=== PATIENT | male | born 1940 | race Caucasian/White ===

== ENCOUNTER → 2016-07-13 | Outpatient (CLI) | payer MEDICARE ==
--- NOTE | 2016-07-14 08:20 | DI ---
Indication: ITS.REASON: M54.16 RADICULOPATHY; M54.5 LBP PROCEDURE: MRI LUMBAR SPINE W/O CONTRAST: Encounter: Initial Comparison: None Technique: Multiplanar multisequence MR imaging of the lumbar spine was performed without contrast. Findings: Alignment of the lumbar spine shows mild scoliosis and grade 1 degenerative anterolisthesis of L4 on L5. Vertebral body heights are maintained. No acute fracture. Conus medullaris terminates normally at L1. The paraspinal soft tissues are unremarkable. Segmental analysis: L1-L2: No significant disk herniation, central canal or neural foraminal stenosis. L2-L3: No significant disk herniation, central canal or neural foraminal stenosis. L3-L4: Minimal disk bulging without central canal stenosis. Degenerative facet disease contributing to mild right and minimal left neural foraminal stenosis. L4-L5: Degenerative facet hypertrophy with ligamentum flavum thickening and mild disk bulging resulting in severe central canal stenosis. Moderate bilateral neural foraminal stenosis. L5-S1: There facet hypertrophy with mild disk bulging but no central canal stenosis. Mild right neural foraminal stenosis. Impression: Severe central canal narrowing at L4-L5. .
== END ==
LOC: IMA 17:02
PROVIDERS: ATTEND Physician Assistant
DX: M48.06 Spinal stenosis, lumbar region (principal); M54.16 Radiculopathy, lumbar region; M54.5 Low back pain

== ENCOUNTER → 2016-08-05 | Outpatient (CLI) | payer MEDICARE ==
[~2016-08-05] MED LIST: IOHEXOL 180 MG/ML 20ml INJECTION ONE; LIDOCAINE 1% (10mg/ml) 5ml VIAL ONE; MethylPREDNISolone ACETATE 40mg/1ml ONE
--- NOTE | 2016-08-05 12:09 | DI ---
Indication:ITS.REASON: M54.16 RADICULOPATHY Procedure:EPIDURAL INJ.SPINE W FLUO CATH LUMBAR EPIDURAL INJECTION: The patient has low back and radicular pain. The patient has not had any previous epidurals. The details of the procedure, including the benefits, risks, and alternatives were explained to the patient. All of their questions were answered. They stated that they understood and wished to proceed. Informed consent was then obtained. A pre-procedural timeout was performed to confirm the correct patient and procedure. Utilizing aseptic technique, local lidocaine anesthetic, and fluoroscopic guidance throughout, a 22-gauge spinal needle was directed into the lumbar epidural space via an interlaminar approach at the L5-S1 level. Contrast was injected to assure proper positioning of the needle tip. A fluoroscopic image was then taken and archived. Subsequently, 120 mg Depo-Medrol was injected into the epidural space. The patient tolerated the procedure well. IMPRESSION: Successful lumbar epidural steroid injection. Fluoroscopy dose: 7.07 mGy (Cumulative air kerma) Malvin Roland RPA/CLARA performed this under my personal supervision. .
== END ==
LOC: IMA 10:53
PROVIDERS: ATTEND Nurse Practitioner
DX: M54.5 Low back pain (principal); M54.16 Radiculopathy, lumbar region
CPT/HCPCS: 62323; J1030; Q9965

== ENCOUNTER 2016-11-02 02:00 | Observation (INO) ==
--- NOTE | 2016-11-02 03:20 | Emergency Department Report ---
Abdominal Pain HPI - General Chief Complaint: Abdominal Pain Stated Complaint: Abd pain Time Seen by Provider: 11/02/16 02:54 - History of Present Illness HPI narrative: 76-year-old gentleman presents with abdominal pain. Patient had colonoscopy performed yesterday by Dr. Wynn. No complications and by history no biopsy performed. Patient went home and had some gas pains after the procedure, but did well, was able to eat 2 meals. He went to sleep and woke up with a cement feeling in his upper abdomen lower chest. Pain was quite severe, 8 out of 10 initially and resolved quite rapidly. At this time he has minimal pain if any. His called EMS and they transported him. He states he normally sees a doctor in [place]. He says he does not have a head of product and has never had any cardiac issues. - Related Data Home Medications Medication Instructions Recorded Confirmed Prilosec (Omeprazole) 20 mg 20 mg PO BID 10/19/16 11/02/16 capsule,delayed release citalopram 20 mg tablet 20 mg PO DAILY tab 10/19/16 11/02/16 garlic 1 mg capsule 1 mg PO DAILY cap 10/19/16 11/02/16 levothyroxine 50 mcg capsule 50 mcg PO DAILY cap 10/19/16 11/02/16 omega-3 fatty acids 1,000 mg 1,000 mg PO DAILY cap 10/19/16 11/02/16 capsule vitamin B complex tablet 1 tab-cap PO Q24H 10/19/16 11/02/16 Previous Rx's Medication Instructions Recorded chlorthalidone 25 mg tablet 25 mg PO .q day #90 tab 10/14/16 Allergies Allergy/AdvReac Type Severity Reaction Status Date / Time No Known Allergies Allergy Verified 11/02/16 02:28 Review of Systems All systems: reviewed and negative except as stated PFSH Patient Stated Medical History Angina No Hypertension Yes Other Cardiology Yes: RARE PVC Asthma No Chronic Obstructive Pulmonary No Disease (COPD) Sleep Apnea Yes Diabetes Mellitus Type 2 No Gastroesophageal Reflux Yes Disease Anemia Yes Anesthesia Reactions No Depression Yes Clinic Medical History Low back pain (Chronic Medical) HTN (hypertension) (Chronic Medical) Anxiety disorder (Chronic Medical) Hypothyroidism (Chronic Medical) GERD (gastroesophageal reflux disease) (Chronic Medical) Surgical History: 1. Tonsillectomy as a child at [place], [place]. 2. Pinning of left ankle with plate and screws to repair a fracture in 1996 at [facility] at [place], [place]. 3. Colonoscopy in 2006 at an office on [address] [place] [address] in [place], [place]. Family History: Family History (Last Updated 10/19/16 @ 13:24 by Niya Blas MA) Sister Diabetes - Social History Smoking status: Former smoker Substance use type: does not use Alcohol intake frequency: does not drink Physical Exam - Limitations Limitations: no limitations - General General appearance: alert, in no apparent distress - Normal Exams: Head:: Normocephalic without trauma Chest/Respirations:: Clear all evans, with good airflow, and symmetry bilaterally Abdomen:: Bowel sounds positive, soft, non-tender, non-distended, no hepatosplenomegaly, masses or bruits noted Neurological:: Patient is alert, and oriented, cranial nerves, motor/sensory/ cerebellar, exams w/o gross deficits, to observation Psychiatric:: Patient exhibits, appropriate attention, emotion and affect - Cardiovascular Cardiovascular exam: Present: bradycardia, irregular rhythm, normal heart sounds. Absent: regular rate Course Vital Signs Temperature 98.3 F 11/02/16 02:00 Pulse Rate 51 L 11/02/16 02:00 Respiratory Rate 18 11/02/16 02:00 Blood Pressure 190/29 H 11/02/16 02:00 Pulse Oximetry 100 11/02/16 02:00 Temperature 98.3 F 11/02/16 02:00 Pulse Rate 51 L 11/02/16 02:00 Respiratory Rate 18 11/02/16 02:00 Blood Pressure 190/29 H 11/02/16 02:00 Pulse Oximetry 100 11/02/16 02:00 Abdominal Pain - [facility] Narrative Medical decision making narrative: Initial concern was in regards to abdominal pain. However as we talked he commented that he felt he had the cement in his chest and abdomen. He was noted to be in A. fib on EKG. Troponin is negative. He continued with heart rate in the mid 50s despite the atrial fibrillation. I spoke with Dr. Haynes and patient will be given Xarelto 15 mg tablet now. Rule out possible cardiac ischemia and admit to observation with hospitalist. Spoke with hospitalist and patient will be admitted. After speaking with hospitalist, it was noted that blood pressure coty from systolic in the 1 and up to a systolic of 198. He did have an episode of chest pain while was on the phone and it resolves spontaneously in less than 2 minutes. I did recontact the hospitalist to make sure he was aware of this. At this point patient is stable and has a new onset atrial fib from documented sinus rhythm yesterday. Abdominal x-ray and lab essentially ruled out free air under the diaphragm, making me much more comfortable that there was not a perforation from the colonoscopy. - Lab Data Result diagrams: 11/02/16 02:24 11/02/16 02:24 Lab Results 11/02/16 11/02/16 Range/Units 02:24 02:24 WBC 8.3 (4.5-11.0) T/MM3 RBC 3.88 L (4.50-5.90) M/MM3 Hgb 12.3 L (13.5-17.5) GM/DL Hct 34.1 L (41-53) % MCV 87.9 (80-100) UM3 MCH 31.7 (26-34) UUG MCHC 36.1 (31-37) GM/DL RDW Std Deviation 39.5 (36.9-50.2) FL Plt Count 153 (130-400) T/MM3 MPV 9.5 (9.4-12.4) UM3 Immature Gran % (Auto) 0.2 (0.0-0.5) % Neut % (Auto) 81.5 H (33-66) % Lymph % (Auto) 11.5 L (23-45) % [place] % (Auto) 4.8 (0-9.0) % Eos % (Auto) 1.9 (0-4) % Baso % (Auto) 0.1 (0-2) % Neut # 6.8 (1.8-7.7) T/MM3 Lymph # 1.0 (1-4.8) T/MM3 [place] # 0.4 (0-0.8) T/MM3 Eos # 0.2 (0-0.5) T/MM3 Baso # 0.0 (0-0.2) T/MM3 Abs Immat Gran (auto) 0.02 (0.00-0.03) T/MM3 Turbidity < 20 (0-20) Sodium 140 (134-144) MEQ/L Potassium 3.5 L (3.6-5) MEQ/L Chloride 103 (98-107) MEQ/L Carbon Dioxide 26 (22-30) MEQ/L Anion Gap 11 (5-15) MEQ/L BUN 23.0 H (9-20) MG/DL Creatinine 1.4 (0.8-1.5) MG/DL GFR Calculation 49 BUN/Creatinine Ratio 16 (6-26) RATIO Glucose 130 H (75-110) MG/DL Calculated Osmolality 275 (261-280) MOSM/KG Calcium 11.1 H (8.4-10.2) MG/DL Total Bilirubin 1.00 (0.20-1.30) MG/DL Icterus Index < 2 (0-7) AST 115 H (17-59) U/L ALT 64 (21-72) U/L Alkaline Phosphatase 73 (38-126) U/L C-Reactive Protein 5.0 (0-9) MG/L Total Protein 7.2 (6.3-8.2) G/DL Albumin 4.2 (3.5-5.0) G/DL Globulin 3.0 (2.4-3.6) G/DL Albumin/Globulin Ratio 1.4 (1.1-2.2) RATIO Specimen Hemolysis < 15 (0-25) Disposition Clinical Impression: New onset atrial fibrillation, Bradycardia, Chest pain, Abdominal pain [place]position: 02 [place] [facility] Condition: Stable Prescriptions: No Action chlorthalidone 25 mg tablet 25 mg PO .q day #90 tab Prilosec (Omeprazole) 20 mg capsule,delayed release 20 mg PO BID levothyroxine 50 mcg capsule 50 mcg PO DAILY cap citalopram 20 mg tablet 20 mg PO DAILY tab omega-3 fatty acids 1,000 mg capsule 1,000 mg PO DAILY cap vitamin B complex tablet 1 tab-cap PO Q24H garlic 1 mg capsule 1 mg PO DAILY cap Referrals: Rashaad Cruz MD [Primary Care Provider] - Time of Disposition: 04:02 - Seen By: physician
[2016-11-02] MEDS ORDERED: RIVAROXABAN 15 MG TABLET PO ONE (03:53)
--- NOTE | 2016-11-02 04:14 | History & Physical Report ---
History of Present Illness Date: 11/02/16 Chief complaint: chest pain HPI: 76 y/o male who woke at with sudden onset of 8/10 abdominal pain and later on chest pain with feeling of "cement in his chest" Pain began around 1130 PM. Called 911, symptoms persisted through their visit and until the ER. There in Er got better. Was noted to be in slow afib (verified this was not present on telemetry during procedure today. Was quite hypertensive in ER and got hydralazine. Currently is better. Belching helps pain relief. Not passing much gas below Just had EGD/colonoscopy on 11-01 for anemia workup, does not appear got bxs, no other finding other than hemorrhoids. AXR shows no free air ER spoke w CV, rec'd observe, MARIAN got anxious on unit and O2 placed but was not hypoxic Review of Systems Comprehensive ROS: completed and no additional positive findings except those as stated PFSH Patient Stated Medical History Angina No Hypertension Yes Other Cardiology Yes: RARE PVC Asthma No Chronic Obstructive Pulmonary No Disease (COPD) Sleep Apnea Yes Diabetes Mellitus Type 2 No Gastroesophageal Reflux Yes Disease Anemia Yes Anesthesia Reactions No Depression Yes Clinic Medical History Low back pain (Chronic Medical) HTN (hypertension) (Chronic Medical) Anxiety disorder (Chronic Medical) Hypothyroidism (Chronic Medical) GERD (gastroesophageal reflux disease) (Chronic Medical) Surgical History: 1. Tonsillectomy as a child at [place], [place]. 2. Pinning of left ankle with plate and screws to repair a fracture in 1996 at [facility] at [place], [place]. 3. Colonoscopy in 2006 at an office on [address] [place] [address] in [place], [place]. Family History: Family History (Last Updated 10/19/16 @ 13:24 by Niya Blas MA) Sister Diabetes - Social History Smoking status: Former smoker Housing: house (lives with his who has dementia) Medications Home Medications Medication Instructions Recorded Confirmed Type Prilosec (Omeprazole) 20 mg 20 mg PO BID 10/19/16 11/02/16 History capsule,delayed release citalopram 20 mg tablet 20 mg PO DAILY tab 10/19/16 11/02/16 History garlic 1 mg capsule 1 mg PO DAILY cap 10/19/16 11/02/16 History levothyroxine 50 mcg capsule 50 mcg PO DAILY cap 10/19/16 11/02/16 History omega-3 fatty acids 1,000 mg 1,000 mg PO DAILY cap 10/19/16 11/02/16 History capsule vitamin B complex tablet 1 tab-cap PO Q24H 10/19/16 11/02/16 History Allergies Allergy/AdvReac Type Severity Reaction Status Date / Time No Known Allergies Allergy Verified 11/02/16 02:28 Exam Vital Signs: Temperature 98.3 F 11/02/16 02:00 Pulse Rate 53 L 11/02/16 03:45 Respiratory Rate 18 11/02/16 03:45 Blood Pressure 198/90 H 11/02/16 03:45 Pulse Oximetry 98 11/02/16 03:45 Oxygen Delivery Method Room Air Telemetry Rhythm: Sinus Bradycardia Telemetry Ectopy: Occasional PVC Height/Weight/BMI: Height 1.82 m Weight 64.2 kg - Constitutional Present: no acute distress - Routine Neck Exam Present: supple - Routine Respiratory Exam Present: CTA bilaterally. Absent: accessory muscle use - Routine Cardiovascular Exam Present: RRR, S1, S2, no murmur - Routine Abdominal Exam Present: soft, normoactive bowel sounds, distended (mild. when pushed abd he belched and said felt better). Absent: tenderness - Routine Extremities Exam Present: no edema Results - Labs CBC & Chem 7: 11/02/16 02:24 11/02/16 02:24 Assessment and Plan (1) Chest pain Current visit: Yes Status: Acute 11/02/16 04:14 rule out GA, stress test today. Sounds like maybe pain from gas retained from colonocdopy/EGD? Maybe a right sided part with ?air fluid level suggestive of ileus 11/02/16 06:15 (2) New onset atrial fibrillation Current visit: Yes Status: Acute 11/02/16 04:14 controlled rate/bradycardic. Xarelto x 1 in ER. May consult CV for assist in care. I think now back in NSR on tele 11/02/16 06:14 (3) Bradycardia Current visit: Yes Status: Acute (4) Abdominal pain Current visit: Yes Status: Acute (5) HTN (hypertension) Current visit: No Status: Chronic 11/02/16 06:16 quite hypertensive in ER, hydralazine x 1 given with some improvement Hospital Course Summary Disclaimer: The visit summary below is not to be considered part of the above Progress Note.
[2016-11-02] MEDS ORDERED: ONDANSETRON 4 MG/2 ML INJECTION IVP PRN (05:09)
[2016-11-02] MEDS ORDERED: METOCLOPRAMIDE 10mg/2ml INJECTION IVP PRN (05:09)
[2016-11-02] MEDS ORDERED: ACETAMINOPHEN 325 MG TABLET PO PRN (05:09)
[2016-11-02] MEDS ORDERED: HYDROCODONE/APAP 5mg/325mg TABLET PO PRN (05:09)
[2016-11-02] MEDS ORDERED: CHLORTHALIDONE 25 MG TABLET PO SCH (05:09)
[2016-11-02 05:20] VITALS: BMI 22.0
[2016-11-02] MEDS ORDERED: OMEPRAZOLE 20 MG CAPSULE PO SCH (07:00)
[2016-11-02] MEDS ORDERED: LEVOTHYROXINE 50 MCG TABLET PO SCH (07:30)
--- NOTE | 2016-11-02 07:52 | XRay Report ---
Indication: abd pain post colonoscopy PROCEDURE: XR KUB w upright: Encounter: Initial Comparison: None Findings: The visualized lung bases are clear. There is no free air on the upright view. The bowel gas pattern is nonobstructive and nonspecific. Gas is seen in nondilated small and large bowel to the level of the rectum. Impression: Nonobstructive nonspecific bowel gas pattern. .
[2016-11-02 08:43] VITALS: TEMP 97.7
[2016-11-02] MEDS ORDERED: CITALOPRAM 20 MG TABLET PO SCH (09:00)
[2016-11-02] MEDS ORDERED: ASPIRIN 81 MG CHEWABLE TABLET PO SCH (09:00)
[2016-11-02] MEDS ORDERED: OMEGA-3 ACID ESTERS 1 GM CAPSULE PO SCH (09:00)
[2016-11-02] MEDS ORDERED: GARLIC 1 MG PO SCH (09:00)
[2016-11-02] MEDS ORDERED: VITAMIN B COMPLEX + C TABLET PO SCH (09:00)
[2016-11-02] MEDS ORDERED: SALINE FLUSH 10ml SYRINGE ONE (10:01)
[2016-11-02] MEDS ORDERED: REGADENOSON 0.4 MG/5 ML INJECTION IVP ONE (10:01)
[2016-11-02] MEDS ORDERED: CHLORTHALIDONE 25 MG TABLET PO ONE (15:52)
[2016-11-02 16:03] VITALS: RESP 24; O2SAT 99
[2016-11-02 16:28] VITALS: BP 170/74; PULSE 55
--- NOTE | 2016-11-02 16:34 | Discharge Instructions ---
Discharge Plan - Med Rec/Dispo Referrals/Follow Up: Rashaad Cruz MD [Primary Care Provider] - (one week) Prescriptions: New Aspirin Chewable [ASA] 81 mg PO DAILY tab.chew Acetaminophen [Tylenol] 325 - 650 mg PO Q5H PRN tablet PRN Reason: Discomfort Continue chlorthalidone 25 mg tablet 25 mg PO .q day #90 tab Prilosec (Omeprazole) 20 mg capsule,delayed release 20 mg PO BID levothyroxine 50 mcg capsule 50 mcg PO DAILY cap citalopram 20 mg tablet 20 mg PO DAILY tab omega-3 fatty acids 1,000 mg capsule 1,000 mg PO DAILY cap vitamin B complex tablet 1 tab-cap PO Q24H garlic 1 mg capsule 1 mg PO DAILY cap Discharge Instructions/Outpatient Orders: Final Provider Discharge Instructions Location: Determined By Patient - Disposition 01 Discharged Home, Self-Care
--- NOTE | 2016-11-02 16:54 | Discharge Summary ---
Discharge Information Date of admission: 11/02/16 04:26 Attending Physician: Elza Castro MD Primary care physician: Tracie Cruz MD Consults: - Discharge Diagnosis Discharge Diagnosis: Upper abdominal and lower Chest [id number] likely GI in nature Hypertension Anemia Mild elevated AST Mildly low potassium Mild elevated calcium Asymptomatic bradycardia - Laboratory Labs: Laboratory Tests 11/02/16 11/02/16 11/02/16 02:24 02:24 02:24 WBC 8.3 Hgb 12.3 L Plt Count 153 Sodium 140 Potassium 3.5 L BUN 23.0 H Creatinine 1.4 Calcium 11.1 H AST 115 H ALT 64 Alkaline Phosphatase 73 Troponin I < 0.012 C-Reactive Protein 5.0 11/02/16 11/02/16 05:47 13:08 WBC Hgb Plt Count Sodium Potassium BUN Creatinine Calcium AST ALT Alkaline Phosphatase Troponin I < 0.012 0.034 D C-Reactive Protein - Radiology Radiology: KUB with upright showed nonobstructive nonspecific bowel gas pattern History of Present Illness HPI: 76 y/o male who woke at with sudden onset of 8/10 abdominal pain and later on chest pain with feeling of "cement in his chest" Pain began around 1130 PM. Called 911, symptoms persisted through their visit and until the ER. There in Er got better. Was noted to be in slow afib (verified this was not present on telemetry during procedure today. Was quite hypertensive in ER and got hydralazine. Currently is better. Belching helps pain relief. Not passing much gas below Just had EGD/colonoscopy on 11-01 for anemia workup, does not appear got bxs, no other finding other than hemorrhoids. AXR shows no free air ER spoke w CV, rec'd observe, MARIAN got anxious on unit and O2 placed but was not hypoxic Objective Vital signs: Temperature 97.7 F 11/02/16 08:00 Pulse Rate 55 L 11/02/16 16:27 Respiratory Rate 24 11/02/16 15:48 Blood Pressure 170/74 H 11/02/16 16:27 Pulse Oximetry 99 11/02/16 15:48 Oxygen Delivery Method Room Air Oxygen Flow Rate 2 Height/Weight/BMI: Height 1.8 m Weight 70.4 kg Body Mass Index 22.0 Hospital Course This is a general summary of the patient's hospital course. For more details refer to the complete medical record. Hospital course: Chief complaint is upper abdominal pain and pain below the rib cage History of present illness Patient is a very pleasant 76-year-old male who underwent a colonoscopy and EGD yesterday. Afterwards he went home and ate a sandwich and then light in his recliner most of the day. He went to bed around 11:30 and when he rolled from his back to his side he developed intense upper abdominal pain and pain below his rib cage into his back. He states the pain was fairly severe and his called 911. EMS arrived and the patient was belching. EMS brought him to the [facility] emergency room and by the time he arrived his pain had resolved. He did not require nitroglycerin or pain medication. He was given 4 chewable aspirin by EMS. Since that time he's had some occasional discomfort that is mild in his upper abdomen and he belches and symptoms go away. He did not notice any shortness of breath or diaphoresis with this pain. He did not have any pain up in his upper chest shoulders or arms. He did not have any pain in his neck. He has not had pain like this before. In the ER and EKG showed question of atrial fibrillation. I did review this EKG with Dr. Haynes and he stated it was not atrial fibrillation. The patient underwent KUB and this did not show any significant abnormalities and specifically no free air. The hospital service was called and asked to admit the patient for chest pain, rule out [place]. Past medical history Hypertension for which the patient was started on chlorthalidone approximately one month ago. He's been checking his blood pressure daily and states it has improved from the 170s mostly down into the 140s. GERD Anemia for which she underwent colonoscopy and EGD yesterday. No significant abnormalities were seen. Depression Low back pain Hypertension Anxiety Hypothyroidism Past surgical history Tonsillectomy, pinning of left ankle with plate and screws to repair a fracture in 1996, colonoscopy in 2006 Comprehensive review of systems is negative other than the above in history of present illness Social history is significant for patient being . His has mild dementia and he cares for her. He was a social smoker but quit 30-40 years ago. Family history significant for his mom dying at age 96 and father dying at age 85 in a motor vehicle collision. There is no family history of coronary artery disease that he is aware of. GEN-alert, oriented, no acute distress HEENT-sclerae anicteric, pupils are equal NECK-neck is supple CV-regular rate and rhythm CHEST-clear to auscultation bilaterally ABD-soft, nontender, nondistended with positive bowel sounds. Patient was belching on occasion during my examination -no Yates EXT-no edema NEURO-focal deficits SKIN-warm and dry and without rashes Impression Upper abdominal/lower chest pain-as likely GI in nature Bradycardia (he did not have A. fib on EKG) Hypertension for which she required IV hydralazine 1 in the emergency room Mild hypokalemia Mild elevated calcium Mild elevated AST Plan Repeat troponin and EKG. Restart chlorthalidone. Discussed with Dr. Haynes and he did review EKG did not feel he had A. fib. The patient was scheduled for a nuclear stress test but after receiving the nuclear medicine for the initiation of the test the patient later refused further testing. Addendum: The patient had no further chest discomfort. He had occasional epigastric discomfort that resolved with belching and was mild in nature. He was eating and drinking well. Blood pressure this afternoon was elevated at 200 systolic and he was given his usual dose of chlorthalidone which she had not received this morning and blood pressure improved to 170 systolic. The patient was asymptomatic with this elevated blood pressure but was strongly desiring to go home and I believe was a little bit anxious about wanting to go home. At this time, with improvement in his blood pressure on his usual home medication, I feel that he is stable for home. He has had 3 normal troponins. EKG was repeated today and did not show any significant ST-T changes. I would recommend that he follow-up with his primary care physician in the next 1 week. He is to continue with his usual medications in addition to aspirin once daily. If he has recurrence of chest pain he should call 911. Discharge Plan - Med Rec/Dispo Referrals/Follow Up: Rashaad Cruz MD [Primary Care Provider] - (one week) Prescriptions: New Aspirin Chewable [ASA] 81 mg PO DAILY tab.chew Acetaminophen [Tylenol] 325 - 650 mg PO Q5H PRN tablet PRN Reason: Discomfort Continue chlorthalidone 25 mg tablet 25 mg PO .q day #90 tab Prilosec (Omeprazole) 20 mg capsule,delayed release 20 mg PO BID levothyroxine 50 mcg capsule 50 mcg PO DAILY cap citalopram 20 mg tablet 20 mg PO DAILY tab omega-3 fatty acids 1,000 mg capsule 1,000 mg PO DAILY cap vitamin B complex tablet 1 tab-cap PO Q24H garlic 1 mg capsule 1 mg PO DAILY cap Discharge Instructions/Outpatient Orders: Final Provider Discharge Instructions Location: Determined By Patient
--- NOTE | 2016-11-03 17:03 | Echocardiogram ---
DATE OF STUDY 11/02/2016 REFERRING PHYSICIAN Elza Castro MD INDICATIONS Atrial fibrillation. TECHNICAL QUALITY Technically good 2D, M-mode, Doppler echocardiographic images were submitted for interpretation. FINDINGS 1. CARDIAC CHAMBERS: The left atrium is mildly enlarged, measuring 4.3 cm. All other cardiac chambers are normal in size. Left ventricle measures 5.5 cm. RV size and contractility appear normal. The aortic root diameter is normal. 2. LEFT VENTRICLE: Wall thickness is normal. Wall motion analysis is normal. Systolic function is normal. EF is estimated at 55%. Diastolic dysfunction grade 1/4 is present. 3. VALVES: Aortic valve is trileaflet and exhibits minimal sclerosis. Valve opening is normal. Mitral valve exhibits mild sclerotic changes. Valve excursion is normal. Tricuspid valve structure and motion appear normal with normal valve excursion. 4. DOPPLER: Analysis reveals very mild mitral regurgitation, mild tricuspid regurgitation, up to at least moderate aortic regurgitation. No aortic stenosis. 5. No evidence of pericardial effusion, intracardiac masses or demonstrable shunts. IMPRESSION 1. Mild left atrial enlargement. 2. Normal LV size and contractility. LVEF 55%. 3. Mild diastolic dysfunction. 4. At least moderate aortic regurgitation associated with sclerotic valve, no stenosis. 5. Sclerotic mitral valve with mild regurgitation. 6. Mild tricuspid regurgitation. 7. Normal systolic PA pressure, normal central venous pressure. 8. No evidence of pericardial effusion, intracardiac masses or demonstrable shunts. RECOMMENDATION Elective Cardiology consultation regarding aortic regurgitation. MTDD
== END 2016-11-02 17:32 | disposition home or self-care (01) ==
LOC: ED 02:00 → SRG 02:00
PROVIDERS: ADMIT Pediatrics; ATTEND Internal Medicine